=== PATIENT | male | born 1965 | race Caucasian/White ===

== ENCOUNTER → 2024-01-07 07:59 | Outpatient (REF) | payer OTHER, SELFPAY | LOC: RAD 07:59 | PROVIDERS: ATTENDING PHYSICIAN Family Medicine | DX: H34.8320 Tributary (branch) retinal vein occlusion, left eye, with macular edema (principal); M54.2 Cervicalgia | CPT/HCPCS: 93880 ==

== ENCOUNTER → 2024-02-06 08:39 | Outpatient (REF) | payer OTHER, SELFPAY | LOC: RAD 08:39 | PROVIDERS: ATTENDING PHYSICIAN Family Medicine | DX: M10.9 Gout, unspecified (principal) | CPT/HCPCS: 73630 ==